=== PATIENT | female | born 1955 | race Caucasian/White ===

== ENCOUNTER → 2018-01-16 | Outpatient (CLI) | payer BC ==
--- NOTE | 2018-01-16 16:55 | BD ---
EXAMINATION TYPE: Axial Bone Density DATE OF EXAM: 01/16/2018 COMPARISON: 2016 CLINICAL HISTORY: osteopenia. Breast cancer, 2008 Height: 5'8 Weight: 130 FRAX RISK QUESTIONS: History of Fracture in Adulthood: y Secondary Osteoporosis: 3. Menopause before 45: y RISK FACTORS HISTORY OF: Postmenopausal woman: y MEDICATIONS: Additional Medications: letrozole Additional History: breast cancer 2008, radiation, chemotherapy EXAM MEASUREMENTS: Bone mineral densitometry was performed using the [employer] System. Bone mineral density as measured about the Lumbar spine is: ----- L1-L4(G/cm2): 1.008 T Score Values are as follows: ----- L2: -1.3 ----- L3:-0.7 ----- L4: -1.8 ----- L1-L4: -1.4 Bone mineral density has: Decreased -1.1% since study of: 01/16/2016 Bone mineral density about the R hip (g/cm2): 0.700 Bone mineral density about the L hip (g/cm2): 0.678 T Score values are as follows: -----R Neck: -2.4 -----L Neck: -2.6 -----R Total: -2.4 -----L Total: -2.4 Bone mineral density has: Decreased -3.7% since study of: 01/16/2016 IMPRESSION: Osteopenia (T Score between -2.5 and -1). There is slightly increased risk of fracture and the patient may be considered for treatment. Re-Screen 2-5 years. NOTE: T-SCORE=SD OF THE YOUNG ADULT MEAN.
== END | disposition home or self-care (01) ==
LOC: RADBDWWP 08:14
PROVIDERS: ATTEND Internal Medicine Hematology & Oncology
DX: C50.919 Malignant neoplasm of unspecified site of unspecified female breast (principal); M85.80 Other specified disorders of bone density and structure, unspecified site; Z79.890 Hormone replacement therapy
CPT/HCPCS: 77080

== ENCOUNTER 2018-09-11 12:09 | Emergency (ER) | payer BC ==
[2018-09-11 12:18] VITALS: BP 145/71; PULSE 90; RESP 18; TEMP 97.6
[2018-09-11] MEDS ORDERED: DIPH,PERTUS(ACELL)TETVAC-LF 0.5 ML VIAL IM ONE (12:37)
[2018-09-11] MEDS ORDERED: LIDOCAINE 1% INJ 10MG/ML (20 ML MDV) SQ ONE (12:40)
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
== END 2018-09-11 14:27 | disposition home or self-care (01) ==
LOC: EC 12:09
DX: S81.811A Laceration without foreign body, right lower leg, initial encounter (principal); Z23 Encounter for immunization; Z85.3 Personal history of malignant neoplasm of breast; Z90.13 Acquired absence of bilateral breasts and nipples; Z79.899 Other long term (current) drug therapy; V28.9XXA Unspecified motorcycle rider injured in noncollision transport accident in traffic accident, initial encounter; Y92.410 Unspecified street and highway as the place of occurrence of the external cause
CPT/HCPCS: 90715; 99282; 12004; 90471; J2001

== ENCOUNTER → 2019-09-18 | Outpatient (CLI) | payer BC | END | disposition home or self-care (01) | LOC: LABWHC1 09:52 | PROVIDERS: ATTEND Ophthalmology | DX: Z11.59 Encounter for screening for other viral diseases (principal) | CPT/HCPCS: U0003; C9803 ==

== ENCOUNTER → 2020-01-21 | Outpatient (CLI) | payer BC ==
--- NOTE | 2020-01-21 10:05 | BD ---
EXAMINATION TYPE: Axial Bone Density DATE OF EXAM: 01/21/2020 COMPARISON: 01.16.2016 CLINICAL HISTORY: 64 YR OLD FEMALE....ICD-10 CODE: M81.0 OSTEOPOROSIS Height: 66.9 Weight: 133 FRAX RISK QUESTIONS: History of Fracture in Adulthood: ONLY AT AGE 30 YRS Secondary Osteoporosis: YES 3. Menopause before 45: YES RISK FACTORS HISTORY OF: Active: YES Diet low in dairy products/other sources of calcium: YES Postmenopausal woman: TOTAL HYST AT AGE [age] Lost more than 2 inches in height since high school: YES Hyperparathyroidism: NO Adrenal Insufficiency: NO MEDICATIONS: Thyroid Medications: NOT AT THIS TIME Additional Medications: FEMARA, CALCIUM WITH VIT D, HX OF CHEMO AND RADIATION FOR BREAST CA, Additional History: HX OF BREAST CANCER, BILAT MASTECTOMIES, EXAM MEASUREMENTS: Bone mineral densitometry was performed using the [employer] System. Bone mineral density as measured about the Lumbar spine is: ----- L1-L4(G/cm2): 1.018 T Score Values are as follows: ----- L1: -1.9 ----- L2: -1.2 ----- L3: -0.6 ----- L4: -1.9 ----- L1-L4: -1.3 Bone mineral density has: Decreased -0.4% since study of: 01.16.2016 Bone mineral density about the R hip (g/cm2): 0.686 Bone mineral density about the L hip (g/cm2): 0.662 T Score values are as follows: -----R Neck: -2.3 -----L Neck: -2.6 -----R Total: -2.6 -----L Total: -2.7 Bone mineral density has: Decreased -7.8% since study of: 01.16.2016 FRAX%s: THERE IS A 20.3% CHANCE FOR A MAJOR OSTEOPOROTIC FX AND A 5.0% FOR HIP.....PROBABILITY FOR FX IN 10 YRS TIME IMPRESSION: Osteoporosis NOTE: T-SCORE=SD OF THE YOUNG ADULT MEAN.
== END | disposition home or self-care (01) ==
LOC: RADBDWWP 09:11
PROVIDERS: ATTEND Internal Medicine Hematology & Oncology
DX: M81.0 Age-related osteoporosis without current pathological fracture (principal); C50.919 Malignant neoplasm of unspecified site of unspecified female breast
CPT/HCPCS: 77080

== ENCOUNTER → 2021-05-27 | Outpatient (CLI) | payer MEDICARE ==
[2021-05-28 12:36] LABS: APTT 53 Sec(s) (<43); APTT 1:1 Mix 47 Sec(s) (<43); DRVVT 1:1 Mix 45 Sec(s) (<44); DRVVT Confirmation Negative (Negative); Dilute Russell Viper Venom 53 Sec(s) (<44); Hexagonal Phase Neutralization Positive (Negative)
[2021-05-28 13:40] LABS: C-ANCA <1:20 Titer (<1:20)
== END | disposition home or self-care (01) ==
LOC: LABWHC1 12:27
PROVIDERS: ATTEND Nurse Practitioner Adult Health
DX: R79.82 Elevated C-reactive protein (CRP) (principal); I79.1 Aortitis in diseases classified elsewhere
CPT/HCPCS: 36415; 85598; 85613; 85730; 85732; 86160; 86255

== ENCOUNTER → 2021-05-29 | Outpatient (CLI) | payer MEDICARE ==
--- NOTE | 2021-05-29 08:44 | CT ---
EXAMINATION TYPE: CT chest wo con DATE OF EXAM: 05/29/2021 COMPARISON: Chest x-ray 08/26/2015 HISTORY: abnormal chest xray CT DLP: 135.5 mGycm. Automated Exposure Control for Dose Reduction was Utilized. TECHNIQUE: CT scan of the thorax is performed without IV contrast. FINDINGS: Lack of contrast could compromise sensitivity. Bilateral breast prostheses are present. The re are coronary artery calcifications present. Apical pleural thickening is present. LUNGS: The lungs show abnormal attenuation at the level of the left upper lobe anteriorly, pleural-ba sed density is somewhat wedge-shaped extending towards the left hilum,. There is no pleural effusio n or pneumothorax seen. The tracheobronchial tree is patent. MEDIASTINUM: Lack of IV contrast is noted to limit evaluation for mediastinal and especially hilar ad enopathy. Retrocaval pretracheal node is borderline enlarged measuring approximately 10 to 11 mm, axi al image 28 No cardiomegaly or pericardial effusion is seen. OTHER: No additional significant abnormality is seen. IMPRESSION: Abnormal density within the lingula is indeterminate and of questionable acuity. Follow-u p is suggested. Differential includes posttreatment scarring, pneumonia.
== END | disposition home or self-care (01) ==
LOC: RADCTMAIN 06:48
PROVIDERS: ATTEND Family Medicine
DX: R91.8 Other nonspecific abnormal finding of lung field (principal)
CPT/HCPCS: 71250

== ENCOUNTER → 2021-07-14 | Outpatient (CLI) | payer MEDICARE | END | disposition home or self-care (01) | LOC: LABWHC1 14:17 | PROVIDERS: ATTEND Internal Medicine Rheumatology | DX: I73.00 Raynaud's syndrome without gangrene (principal); R77.8 Other specified abnormalities of plasma proteins | CPT/HCPCS: 36415; 86334 ==

== ENCOUNTER → 2021-07-21 | Outpatient (CLI) | payer MEDICARE ==
--- NOTE | 2021-07-21 12:56 | CT ---
EXAMINATION TYPE: CT chest w con DATE OF EXAM: 07/21/2021 COMPARISON: CT dated 05/29/2021 HISTORY: Possible pneumonia. C/o SOB, hx Covid, breast ca CT DLP: 290 mGycm Automated exposure control for dose reduction was used. TECHNIQUE: CT scan of the chest is performed with IV Contrast, patient injected with 100 mL of Isovue 300. FINDINGS: LUNGS: Interval regression of the size of the previously seen heterogeneous lesion at the anterior as pect of the left lung base, demonstrating air bronchograms within, likely representing a regressing c hronic atelectasis yet it is not completely resolved. Thick bilateral apical pulmonary fibrotic ritter es with traction bronchiectasis, more on the right side. Patent trachea and main bronchi. No pleural effusion. MEDIASTINUM: There are no greater than 1 cm hilar or mediastinal lymph nodes. No cardiomegaly. Cochran ry and arterial atherosclerotic calcifications. No sizable pericardial effusion is seen. OTHER: Bilateral breast prosthesis. Segment 8 hepatic cyst. No aggressive bone lesion. IMPRESSION: Regressing left anterior lung base lesion likely representing a regressing chronic atelectasis yet no t completely resolved. Another follow-up CT scan in 6 months can be considered. No new suspicious or progressive lung lesion. Other incidental findings as described above.
== END | disposition home or self-care (01) ==
LOC: RADCTMAIN 10:57
PROVIDERS: ATTEND Family Medicine
DX: J98.4 Other disorders of lung (principal); Z86.16 Personal history of COVID-19
CPT/HCPCS: 82565; 84520; 71260; 36415; Q9967

== ENCOUNTER 2021-09-16 08:08 | Day surgery (SDC) | payer MEDICARE ==
[2021-09-14 11:10] VITALS: BMI 17.5
[~2021-09-16 08:08] MED LIST: MOXIFLOXACIN HCL 0.5% DROPS 3 ML BTL OP PRN; TETRACAINE 0.5% OPHTH (PF) DROPS 4 ML BTL OP PRN; TIMOLOL 0.5% OPHTH DROPS 5 ML BTL OP PRN
[2021-09-16 09:04] VITALS: TEMP 97.8
[2021-09-16] MEDS: CYCLOPENTOLATE 1% OPHTH SOLN 2 ML BTL OP PRN ×3 (09:12→09:26)
[2021-09-16] MEDS: PHENYLEPHRINE 2.5% OPHTH DRP 2ML OP PRN ×3 (09:15→09:30)
[2021-09-16] MEDS: LACTATED RINGERS 1,000 ML IV SCH ×2 (09:19→10:06)
[2021-09-16] MEDS ORDERED: BALANCED SALT IRRIG SOLN COMB2 15 ML IRRIG.SOLN INTRAOCULA ONE ×2 (09:32→10:18)
[2021-09-16] MEDS ORDERED: HYALURONATE SODIUM INTRAOCULAR 1 EACH SYRINGE (12MG/ML) INTRAOCULA ONE ×2 (09:32→10:18)
[2021-09-16] MEDS ORDERED: LIDOCAINE 1% (PF) 10MG/ML VIAL MISCELLANE ONE ×2 (09:33→10:18)
[2021-09-16] MEDS ORDERED: MOXIFLOXACIN HCL 0.5% DROPS 3 ML BTL RIGHT EYE ONE ×2 (09:33→10:18)
[2021-09-16] MEDS ORDERED: TIMOLOL 0.5% OPHTH SOLN (PF) 0.2 ML DROPERETTE RIGHT EYE ONE ×2 (09:33→10:18)
[2021-09-16] MEDS ORDERED: MIDAZOLAM 2 MG/2 ML VIAL ONE (10:04)
[2021-09-16] MEDS ORDERED: fentaNYL (PF) 50 MCG/ML 2 ML AMP ONE (10:04)
[2021-09-16] MEDS ORDERED: EPINEPHrine (PF) 0.3 ML in BALANCED SALT IRRIG SOLN COMB2 500 ML IRRIGATION ONE (10:07)
--- NOTE | 2021-09-16 10:38 | P.OP ---
Date of Procedure: 09/16/21 Preoperative Diagnosis: NS & reg astigmatism Postoperative Diagnosis: same Procedure(s) Performed: PIOL, OD Implants: Vivity [id number] 21.00 Anesthesia: MAC Surgeon: Nael Lang Pathology: none sent Condition: stable Disposition: same day Indications for Procedure: blurry vision Operative Findings: no complications
[2021-09-16 11:01] VITALS: RESP 16
[2021-09-16 11:15] VITALS: BP 135/63; PULSE 56
--- NOTE | 2021-09-17 00:38 | OP ---
OPERATIVE REPORT PROCEDURE PERFORMED: Phacoemulsification of cataract and intraocular lens implant of the right eye. PREOPERATIVE DIAGNOSES: Nuclear sclerosis and regular astigmatism. POSTOPERATIVE DIAGNOSES: Nuclear sclerosis and regular astigmatism. ANESTHESIA: Topical. ESTIMATED BLOOD LOSS: None. SPECIMEN TAKEN: None. NARRATIVE: After obtaining appropriate consent, the patient was brought to the operating room. The patient was asked to sit upright and the axes 0 and 180 degrees were identified and marked with a gentian prince marker. She was then placed in the proper supine position, prepped and draped in the usual sterile manner. She was approached axis of 32 degrees 1% Xylocaine MPF 50:50 mix with balanced salt solution was injected into the anterior chamber, followed by stabilization of the anterior chamber with Amvisc. At the 9 o'clock position, a 2.5 mm keratome was used to create a self-sealing corneal flap incision. Through this opening, a cystotome was introduced to begin a continuous tear capsulorrhexis, which was completed with Utrata forceps. Hydrodissection and hydrodelineation of the lens were accomplished with balanced salt solution. Phacoemulsification of the lens utilizing phacochop was accomplished in seconds at 11% power. Additional Xylocaine MPF was instilled into the anterior chamber. This was followed by removal of the remaining cortical material careful polishing of the posterior and anterior capsular leaflets. Amvisc was then used to stabilize the capsular bag, and an Lloyd Vivity Toric, model [id number], 21.0 diopter posterior chamber intraocular lens was inserted into the capsular bag without difficulty. The remaining viscoelastic was removed from in and around the intraocular lens. The eye was then brought to normal intraocular pressure through the paracentesis ports. Care was taken to orient the lens in alignment previously marked on the patient's cornea. She received 2 drops of 0.5% timolol followed by 2 drops of 0.5% moxifloxacin. She was then lightly patched and shielded in the usual manner. There were no complications from the procedure. She tolerated the procedure well and was taken to the outpatient recovery in good condition. MMODL / IJN: [id number] /
== END 2021-09-16 11:44 | disposition home or self-care (01) ==
LOC: OR 08:08
PROVIDERS: ATTEND Ophthalmology
DX: H25.13 Age-related nuclear cataract, bilateral (principal); H52.223 Regular astigmatism, bilateral; H52.11 Myopia, right eye; H00.023 Hordeolum internum right eye, unspecified eyelid; H00.026 Hordeolum internum left eye, unspecified eyelid; H52.02 Hypermetropia, left eye; H52.4 Presbyopia; D89.89 Other specified disorders involving the immune mechanism, not elsewhere classified
CPT/HCPCS: 66984; V2787; C1780; J2250; J0171; J3010; J2001

== ENCOUNTER → 2022-06-08 | Outpatient (CLI) | payer MEDICARE ==
--- NOTE | 2022-06-08 13:47 | BD ---
EXAMINATION TYPE: Axial Bone Density DATE OF EXAM: 06/08/2022 CLINICAL HISTORY: 67 years old Female. ICD-10 CODE: C50.919 Breast cancer Height: 68 Weight: 125.2 FRAX RISK QUESTIONS: Alcohol (3 or more units per day): no Family History (Parent hip fracture): no Glucocorticoids (More than 3mos): no (Ex: prednisone, prednisolone, methylprednisolone, dexamethasone, and hydrocortisone). History of Fracture in Adulthood: yes Secondary Osteoporosis: 1. Type 1 Diabetes: no 2. Hyperthyroidism: no 3. Menopause before 45: yes 4. Malnutrition: no 5. Chronic liver disease: no Rheumatoid Arthritis: no Current Tobacco Use: no RISK FACTORS HISTORY OF: Surgery to Spine/Hip(right/left)/Wrist (right/left): no Family History of Osteoporosis: no Active: yes Diet low in dairy products/other sources of calcium: no Postmenopausal woman: yes Lost more than 2 inches in height since high school: no MEDICATIONS: Additional History: EXAM MEASUREMENTS: Bone mineral densitometry was performed using the [employer] System. Bone mineral density as measured about the Lumbar spine is: ----- L1-L4(G/cm2): 1.006 T Score Values are as follows: ----- L1: -2.3 ----- L2: -1.5 ----- L3: -0.9 ----- L4: -1.2 ----- L1-L4: -1.4 Z Score Values are as follows: ----- L1: -0.5 ----- L2: 0.3 ----- L3: 1.0 ----- L4: 0.9 ----- L1-L4: 0.4 Bone mineral density has: decreased -1.2 % since study of: 01.21.2020 Bone mineral density about the R hip (g/cm2): 0.712 Bone mineral density about the L hip (g/cm2): 0.766 T Score values are as follows: -----R Neck: -1.8 -----L Neck: -2.2 -----R Total: -2.3 -----L Total: -1.9 Z Score values are as follows: -----R Neck: -0.1 -----L Neck: -0.5 -----R Total: -0.9 -----L Total: -0.4 Bone mineral density has: increased 9.6 % since study of: 01.21.2020 FRAX%s: The graph provided illustrates a 16.9% chance for a major osteoporotic fx and a 3.4% chance f or the hips probability for fx in 10 years time IMPRESSION: Osteopenia (T Score between -2.5 and -1). There is slightly increased risk of fracture and the patient may be considered for treatment. Re-Screen 2-5 years. NOTE: T-SCORE=SD OF THE YOUNG ADULT MEAN.
== END | disposition home or self-care (01) ==
LOC: RADBDWWP 09:18
PROVIDERS: ATTEND Internal Medicine Hematology & Oncology
DX: C50.919 Malignant neoplasm of unspecified site of unspecified female breast (principal); M85.89 Other specified disorders of bone density and structure, multiple sites; Z78.0 Asymptomatic menopausal state
CPT/HCPCS: 77080

== ENCOUNTER → 2022-06-22 | Outpatient (CLI) | payer MEDICARE ==
--- NOTE | 2022-06-22 10:47 | CT ---
EXAMINATION TYPE: CT chest wo con DATE OF EXAM: 06/22/2022 COMPARISON: 05/18/2019 HISTORY: h/o breast CA, pneumonia CT DLP: 120 mGycm, Automated exposure control for dose reduction was used. CONTRAST: Performed injected with 0 mL of Isovue 300. TECHNIQUE: Axial images were obtained at 5 mm thick sections. Reconstructed images are reviewed on [employer] computer in the coronal plane. FINDINGS: Portion of the thyroid visualized is normal. Bilateral apical scarring is present similar to comparison. There is a 0.3 cm punctate nodular density within the periphery right lung present previously and sta ble. Some streak opacities in the lingula may be some atelectasis or scarring, stable from comparison . Bilateral breast prostheses are present. No enlarged mediastinal or hilar adenopathy is evident. The ascending aorta diameter at the level o f the main pulmonary artery is 3.7 cm. The main pulmonary artery diameter at the bifurcation is 3.0 cm. Coronary artery calcification is present. Limited CT sections are obtained through the upper abdomen. Abdomen is essentially unremarkable. Osse ous structures appear normal without suspicious lytic or sclerotic lesions. IMPRESSIONS: 1. Stable lung findings. No acute pulmonary process evident.
== END | disposition home or self-care (01) ==
LOC: RADCTMAIN 06:53
PROVIDERS: ATTEND Family Medicine
DX: C50.919 Malignant neoplasm of unspecified site of unspecified female breast (principal)
CPT/HCPCS: 71250